=== PATIENT | male | born 1980 | race Caucasian/White ===

== ENCOUNTER 2019-06-06 08:53 | Outpatient (CLI) | payer OTHER ==
--- NOTE | 2019-06-06 09:52 | RAD ---
PA AND LATERAL CHEST: Date: 06/06/2019 INDICATION: Shortness of breath. COMPARISON: None. FINDINGS: Lungs are clear. Heart size is normal. No acute osseous abnormality is evident. IMPRESSION: No acute cardiopulmonary abnormality. POS: BH
--- NOTE | 2019-06-06 10:22 | RAD ---
ABDOMEN 2 VIEWS: Date: 06/06/2019 INDICATION: Generalized abdominal pain. COMPARISON: None. FINDINGS: Lung bases are clear. Bowel gas pattern is unobstructed. No suspicious calcifications are evident. No acute osseous abnormality is noted. IMPRESSION: No acute abnormality. POS: BH
== END 2019-06-06 08:54 | disposition home or self-care (01) ==
LOC: BICRAD 08:53
PROVIDERS: ATTEND Family Medicine
DX: R10.84 Generalized abdominal pain (principal); R06.02 Shortness of breath
CPT/HCPCS: 36415; 71046; 74019; 80053; 80074; 85025; 86710